=== PATIENT | female | born 1985 | race African-American/Black ===

== ENCOUNTER 2019-05-18 02:30 | Observation (INO) | payer OTHER ==
[~2019-05-18] VITALS: Ht 155 cm; Wt 72.6 kg
== END 2019-05-18 05:10 | disposition home or self-care (01) ==
LOC: 4S 02:30
PROVIDERS: ADMIT Obstetrics & Gynecology; ATTEND Obstetrics & Gynecology
DX: O26.893 Other specified pregnancy related conditions, third trimester (principal); R10.31 Right lower quadrant pain; Z3A.39 39 weeks gestation of pregnancy
CPT/HCPCS: 80307 ×8; 81002; G0378